=== PATIENT | female | born 1975 | race African-American/Black ===

== ENCOUNTER 2023-04-28 19:14 | Emergency (ER) | payer OTHER ==
[2023-04-28] MEDS ORDERED: KETOROLAC 30 MG/ML INJ ONE (20:14)
[2023-04-28] MEDS ORDERED: NA CHLORIDE 0.9% 1,000 ML ONE (20:14)
[2023-04-28] MEDS ORDERED: ONDANSETRON 4 MG/2 ML VIAL ONE (20:14)
--- NOTE | 2023-04-28 20:14 | RAD REPORT ---
EXAM DESCRIPTION: CT - Head Brain Wo Cont - 04/28/2023 7:43 pm CLINICAL HISTORY: DIZZINESS Headache, drowsiness COMPARISON: No comparisons TECHNIQUE: All CT scans are performed using dose optimization technique as appropriate and may inclu de automated exposure control or mA/KV adjustment according to patient size. FINDINGS: No intracranial hemorrhage, hydrocephalus or extra-axial fluid collection.No areas of brai n edema or evidence of midline shift. The paranasal sinuses and mastoids are clear. The calvarium is intact. IMPRESSION: No acute intracranial abnormality.
[2023-04-28 20:43] LABS: Absolute Lymphocytes (CBC) 1.8 K/uL (0.7-4.9); Hematocrit 38.8 % (36.0-45.0); Lymphocytes % 24.9 % (15.3-44.8); MCV 89.8 fL (80-100); MPV 9.1 fL (7.6-11.3); RBC Red Blood Cell Count 4.32 M/uL (3.86-4.86)
[2023-04-28 20:57] LABS: AST/SGOT 13 U/L (15-37); Albumin 3.6 g/dL (3.4-5.0); Alkaline Phosphatase 51 U/L (45-117); BUN Blood Urea Nitrogen 9 mg/dL (7-18); Bicarbonate 24 mEq/L (21-32); Bilirubin Direct 0.1 mg/dL (0-0.2); Bilirubin Indirect, Calculated 0.5 mg/dL (0.2-0.8); Bilirubin Total 0.6 mg/dL (0.2-1.0); Glomerular Filtration Rate 88 ml/min (=/>90); Glucose Level 87 mg/dL (74-106); Potassium 3.8 mEq/L (3.5-5.1); Protein, Total 7.8 g/dL (6.4-8.2); Sodium Level 134 mEq/L (136-145); Troponin High Sensitivity 25.6 pg/mL (<58.9)
[2023-04-28 20:58] LABS: ALT/SGPT < 10 U/L (13-56)
[2023-04-28 21:37] LABS: Specific Gravity 1.021 (1.005-1.030); Urine Bacteria None Seen /HPF (<20); Urine Bilirubin NEGATIVE (Negative); Urine Blood 2+ (Negative); Urine Clarity Clear (Clear); Urine Color Light-Yellow (Yellow); Urine Glucose NEGATIVE (Negative); Urine Mucus Slight /HPF (None Seen); Urine Protein NEGATIVE (Negative); Urine Urobilinogen 1+ (Normal); Urine pH 5.5 (5.0-7.0)
--- NOTE | 2023-04-28 21:57 | ER ---
Nurse's Notes [facility] Name: Tracie Llanes Age: 47 yrs Sex: Female : 1975 Arrival Date: 04/28/2023 Time: 19:14 Bed 19 Private MD: Diagnosis: Dizziness and giddiness;Nausea Presentation: 04/28 19:27 Chief complaint: Patient states: I have been having dizziness on and off for two months kd3 but yesterday I started vomiting and I started having a headache today. My international first officer told me everything was fine. I still feel nauseous and my head still hurts. Coronavirus screen:. Ebola Screen: No symptoms or risks identified at this time. Initial Sepsis Screen: Does the patient meet any 2 criteria? No. Patient's initial sepsis screen is negative. Does the patient have a suspected source of infection? No. Patient's initial sepsis screen is negative. Risk Assessment: Do you want to hurt yourself or someone else? Patient reports no desire to harm self or others. Onset of symptoms was April 28, 2023. 19:27 Method Of Arrival: Ambulatory kd3 19:27 Acuity: KATLYN 3 kd3 19:31 Coronavirus screen: Vaccine status: Patient reports receiving the 2nd dose of the covid kd3 vaccine. Triage Assessment: 19:27 General: Appears uncomfortable, Behavior is calm, cooperative. Pain: Complains of pain kd3 in headache. Neuro: Level of Consciousness is awake, alert, obeys commands, Oriented to person, place, time, situation. Cardiovascular: Patient's skin is warm and dry. Respiratory: Airway is patent Trachea midline Respiratory effort is even, unlabored, Respiratory pattern is regular, symmetrical. GI: Reports nausea. 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 - Social history:: Smoking status: unknown. Screenin:30 [facility] ED Fall Risk Assessment (Adult) History of falling in the last 3 months, ha1 including since admission No falls in past 3 months (0 pts) Confusion or Disorientation No (0 pts) Intoxicated or Sedated No (0 pts) Impaired Gait No (0 pts) Mobility Assist Device Used No (0 pt) Altered Elimination No (0 pt) Score/Fall Risk Level 0 - 2 = Low Risk Oriented to surroundings, Maintained a safe environment, Educated pt \T\ family on fall prevention, incl call for assistance when getting out of bed. Abuse screen: Denies threats or abuse. Denies injuries from another. Nutritional screening: No deficits noted. Tuberculosis screening: No symptoms or risk factors identified. Assessment: 19:55 General: Appears comfortable, Behavior is calm, cooperative. Pain: Complains of pain in ha1 head Pain does not radiate. Pain currently is 8 out of 10 on a pain scale. Quality of pain is described as pressure, Pain began gradually. Neuro: Level of Consciousness is awake, alert, obeys commands, Oriented to person, place, time, situation. Neuro: Reports dizziness, with movements. Cardiovascular: Patient's skin is warm and dry. Respiratory: Airway is patent Respiratory effort is even, unlabored, Respiratory pattern is regular, symmetrical. GI: Abdomen is flat, non-distended, Bowel sounds present X 4 quads. Reports nausea. Musculoskeletal: Circulation, motion, and sensation intact. Range of motion: intact in all extremities. 20:50 Reassessment: Patient and/or family updated on plan of care and expected duration. Pain ha1 level reassessed. Patient is alert, oriented x 3, equal unlabored respirations, skin warm/dry/pink. Patient states feeling better. Patient states symptoms have improved. 21:50 Reassessment: Patient and/or family updated on plan of care and expected duration. Pain ha1 level reassessed. Patient is alert, oriented x 3, equal unlabored respirations, skin warm/dry/pink. Vital Signs: 19:26 BP 132 / 90; Pulse 92; Resp 19; Temp 98.5(O); Pulse Ox 100% on R/A; Weight 61.23 kg; kd3 Height 5 ft. 1 in. ; 20:50 BP 123 / 91 Supine; Pulse 75; Resp 15 S; Pulse Ox 100% ; ha1 20:53 BP 128 / 91 Sitting; Pulse 79; ha1 20:57 BP 128 / 84 Standing; Pulse 80; ha1 21:50 BP 122 / 81; Pulse 78; Resp 18 S; Pulse Ox 99% on R/A; ha1 19:26 Body Mass Index 25.51 (61.23 kg, 154.94 cm) kd3 ED Course: 19:21 Patient arrived in ED. kj1 19:22 [facility]aviria [facility]-C [facility] sb4 19:22 Sukumar Fregoso MD is Attending Physician. sb4 19:27 Arm band placed on left wrist. kd3 19:29 Triage completed. kd3 19:30 Patient has correct armband on for positive identification. Placed in gown. Bed in low ha1 position. Call light in reach. Side rails up X 1. 19:45 CT Head Brain wo Cont In Process Unspecified. EDMS 20:01 Kristen Morris, NELY is Primary Nurse. ha1 20:25 Inserted saline lock: 20 gauge in left antecubital area, using aseptic technique. Blood oe collected. 20:26 Basic Metabolic Panel Sent. ha1 20:26 CBC with Diff Sent. ha1 20:26 Hepatic Function Sent. ha1 20:26 Magnesium Sent. ha1 20:26 Troponin High Sensitivity Sent. ha1 21:56 Nancy Morris MD is Referral Physician. sb4 22:22 No provider procedures requiring assistance completed. IV discontinued, intact, ha1 bleeding controlled, No redness/swelling at site. Pressure dressing applied. 22:23 Provided Education on: follow ups. ha1 Administered Medications: 20:22 Drug: Ondansetron IVP 4 mg Route: IVP; Site: left antecubital; ha1 20:55 Follow up: Response: No adverse reaction; Nausea is decreased ha1 20:25 Drug: Ketorolac IVP 15 mg Route: IVP; Site: left antecubital; ha1 20:55 Follow up: Response: (VIS) Vaccine information sheet provided today. Questions and/or ha1 concerns addressed. VIS edition date: May 20, 2021.; Pain is decreased 20:26 Drug: NS 0.9% IV 1000 ml Route: IV; Rate: 1 bolus; Site: left antecubital; ha1 22:26 Follow up: Response: No adverse reaction; IV Status: Completed infusion; IV Intake: ha1 1000ml Medication: 22:23 VIS not applicable for this client. ha1 Intake: 22:26 IV: 1000ml; Total: 1000ml. ha1 Outcome: 21:56 Discharge ordered by . sb4 22:23 Discharged to home ambulatory, with family. ha1 22:23 Condition: stable 22:23 Discharge instructions given to patient, family, Instructed on discharge instructions, follow up and referral plans. medication usage, Demonstrated understanding of instructions, follow-up care, medications, Prescriptions given X 2. 22:26 Patient left the ED. ha1 Signatures: Dispatcher [employer] EDCO Devang Hall Kandis kj1 Barbara Cadet, RN RN kd3 Kristen Morris RN RN ha1 Eveline Gaviria, PABeatriceC PABeatriceC sb4
--- NOTE | 2023-04-28 21:57 | EDPHYS ---
Physician Documentation [facility] Name: Tracie Llanes Age: 47 yrs Sex: Female : 1975 Arrival Date: 04/28/2023 Time: 19:14 Bed 19 Private MD: ED Physician Sukumar Fregoso HPI: 04/28 19:35 This 47 yrs old Black Female presents to ER via Ambulatory with complaints of Nausea, sb4 Dizziness, Headache. 19:35 47-year-old female past medical history of hypertension presents with complaints of sb4 dizziness for 2 months and headache and nausea that began today. She states that she was evaluated by cardiology about a month ago for the dizziness and no cardiac cause was identified. She states the dizziness feels like the room is spinning. Denies any precipitating factors. Denies abdominal pain, fever, shortness of breath, chest pain. 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 - Social history:: Smoking status: unknown. ROS: 19:35 Constitutional: Negative for fever, chills, and weight loss. sb4 19:35 Abdomen/GI: Positive for nausea, Negative for abdominal pain, vomiting, diarrhea, constipation. 19:35 Neuro: Positive for dizziness, headache. 19:35 All other systems are negative. Exam: 19:35 Constitutional: This is a well developed, well nourished patient who is awake, alert, sb4 and in no acute distress. Head/Face: Normocephalic, atraumatic. Eyes: Extra-ocular motions intact. Periorbital areas with no swelling, redness, or edema. ENT: Mucous membranes moist. Cardiovascular: Regular rate and rhythm with a normal S1 and S2. Respiratory: Lungs have equal breath sounds bilaterally, clear to auscultation and percussion. No rales, rhonchi or wheezes noted. No increased work of breathing, no retractions or nasal flaring. Abdomen/GI: Soft, non-tender, no distension. Skin: Warm, dry with normal turgor. Normal color with no rashes, no lesions, and no evidence of cellulitis. MS/ Extremity: Pulses equal, no cyanosis. Neurovascular intact. Full, normal range of motion. Neuro: Awake and alert, GCS 15, oriented to person, place, time, and situation. Cranial nerves II-XII grossly intact. Motor strength 5/5 in all extremities. Sensory grossly intact. Cerebellar exam normal. Normal gait. Vital Signs: 19:26 BP 132 / 90; Pulse 92; Resp 19; Temp 98.5(O); Pulse Ox 100% on R/A; Weight 61.23 kg; kd3 Height 5 ft. 1 in. ; 20:50 BP 123 / 91 Supine; Pulse 75; Resp 15 S; Pulse Ox 100% ; ha1 20:53 BP 128 / 91 Sitting; Pulse 79; ha1 20:57 BP 128 / 84 Standing; Pulse 80; ha1 21:50 BP 122 / 81; Pulse 78; Resp 18 S; Pulse Ox 99% on R/A; ha1 19:26 Body Mass Index 25.51 (61.23 kg, 154.94 cm) kd3 MDM: 19:22 Patient medically screened. sb4 19:35 Differential diagnosis: hypothyroidism, hyperthyroidism, new onset diabetes, cardiac sb4 arrythmia, vertigo, sepsis, brain tumor. 21:55 Data reviewed: vital signs, nurses notes, lab test result(s), EKG, radiologic studies, sb4 and as a result, I will discharge patient. Consideration of Admission/Observation Escalation of care including admission/observation considered. Counseling: I had a detailed discussion with the patient and/or guardian regarding: the historical points, exam findings, and any diagnostic results supporting the discharge/admit diagnosis, lab results, radiology results, to return to the emergency department if symptoms worsen or persist or if there are any questions or concerns that arise at home. Medication response: Zofran relieved the patient's nausea. Special discussion: Further emergent ED testing is not indicated at this point in time. I discussed with the patient/guardian in detail the need to arrange with the PCP or specialist further outpatient testing, Based on the history and exam findings, there is no indication for further emergent testing or inpatient evaluation. I discussed with the patient/guardian the need to see the ENT specialist for further evaluation of the symptoms. 04/28 19:33 Order name: Basic Metabolic Panel; Complete Time: 21:15 sb4 04/28 19:33 Order name: CBC with Diff; Complete Time: 20:52 sb4 04/28 19:33 Order name: Hepatic Function; Complete Time: 21:15 sb4 04/28 19:33 Order name: Magnesium; Complete Time: 21:15 04/28 19:33 Order name: Troponin High Sensitivity; Complete Time: 21:15 04/28 19:33 Order name: Urinalysis w/ reflexes; Complete Time: 21:49 04/28 19:33 Order name: TSH; Complete Time: 21:15 04/28 19:33 Order name: CT Head Brain wo Cont; Complete Time: 20:17 04/28 19:33 Order name: EKG; Complete Time: 19:34 04/28 19:33 Order name: Cardiac monitoring; Complete Time: 20:26 04/28 19:33 Order name: EKG - Nurse/Tech; Complete Time: 20:26 04/28 19:33 Order name: IV Saline Lock; Complete Time: 20:26 04/28 19:33 Order name: Labs collected and sent; Complete Time: 20:26 04/28 19:33 Order name: O2 Per Protocol; Complete Time: 20:26 04/28 19:33 Order name: O2 Sat Monitoring; Complete Time: 20:26 04/28 19:33 Order name: Orthostatics; Complete Time: 21:43 sb4 EC:37 Rate is 82 beats/min. Rhythm is regular, Sinus Rhythm. [place] interval is normal at 108 sb4 msec. QRS interval is normal at 68 msec. QT interval is normal at 364 msec. Clinical impression: Normal ECG. Interpreted by me. Reviewed by me. Administered Medications: 20:22 Drug: Ondansetron IVP 4 mg Route: IVP; Site: left antecubital; ha1 20:55 Follow up: Response: No adverse reaction; Nausea is decreased ha1 20:25 Drug: Ketorolac IVP 15 mg Route: IVP; Site: left antecubital; ha1 20:55 Follow up: Response: (VIS) Vaccine information sheet provided today. Questions and/or ha1 concerns addressed. VIS edition date: May 20, 2021.; Pain is decreased 20:26 Drug: NS 0.9% IV 1000 ml Route: IV; Rate: 1 bolus; Site: left antecubital; ha1 22:26 Follow up: Response: No adverse reaction; IV Status: Completed infusion; IV Intake: ha1 1000ml Disposition: 04/29 05:01 Co-signature as Attending Physician, Sukumar Fregoso MD I reviewed the patient's care rt provided by the Advanced Practice Provider and agree with the diagnosis and treatment plan. Disposition Summary: 04/28/23 21:56 Discharge Ordered Location: Home sb4 Problem: an ongoing problem sb4 Symptoms: have improved sb4 Condition: Stable sb4 Diagnosis - Dizziness and giddiness sb4 - Nausea sb4 Followup: sb4 - With: Nancy Morris MD - When: As needed - Reason: Further diagnostic work-up, Recheck today's complaints, Re-evaluation by your physician Discharge Instructions: - Discharge Summary Sheet sb4 - Dizziness sb4 - Nausea, Adult, [id number] sb4 Forms: - Medication Reconciliation Form sb4 - Thank You Letter sb4 - Antibiotic Education sb4 - Prescription Opioid Use sb4 - Patient Portal Instructions sb4 Prescriptions: - Meclizine 25 mg Oral Tablet - take 1 tablet by ORAL route every 8 hours As needed; 30 tablet; Refills: 0, sb4 Product Selection Permitted - Zofran 4 mg Oral Tablet - take 1 tablet by ORAL route every 12 hours As needed; 20 tablet; Refills: 0, sb4 Product Selection Permitted Signatures: Dispatcher [employer] Barbara Love RN RN kd3 Kristen Morris RN RN ha1 Eveline Gaviria, PABeatriceC PABeatriceC sb4 Sukumar Fregoso MD MD rt
[2023-04-28 23:11] VITALS: TEMP 98.5
[2023-04-28 23:15] VITALS: BP 122/81; O2SAT 99
--- NOTE | 2023-04-30 11:46 | EKG ---
Test Date: 2023-04-28 Test Time: 20:15:48 [place]aker: SANDY MEASUREMENT RESULTS: Intervals: Rate: 82 WY: 108 QRSD: 68 QT: 364 QTc: 425 [place]: P: 62 WY: 108 QRS: 62 T: 51 INTERPRETIVE STATEMENTS: Sinus rhythm with short [place] Otherwise normal ECG No previous ECG available for comparison Electronically Signed On 04-30-23 11:44:16 CDT by Julian Fountain
== END 2023-04-28 22:26 | disposition home or self-care (01) ==
LOC: ER 19:14
DX: R42 Dizziness and giddiness (principal); R11.0 Nausea; R51.9 Headache, unspecified
CPT/HCPCS: 96361; 93005; 85025; 81001; 80048; 36415; 83735; 80076; 84443; 84484; 70450; 96375; 96374; 99284; J2405; J7030